=== PATIENT | male | born 1955 | race Caucasian/White ===

== ENCOUNTER 2020-08-28 14:18 | Emergency (ER) | payer BC, MEDICARE, OTHER ==
[~2020-08-28] VITALS: Ht 177.8 cm; Wt 67.7 kg
[2020-08-28 15:09] LABS: BASOPHILS # (AUTO) 0.1 X10'3 (0-0.2); BASOPHILS % (AUTO) 1.6 % (0-1); EOSINOPHILS # (AUTO) 0.1 X10'3 (0-0.9); EOSINOPHILS % (AUTO) 1.3 % (0-6); HEMATOCRIT 43.1 % (42.0-52.0); HEMOGLOBIN 14.6 g/dl (14.0-17.9); LYMPHOCYTES # (AUTO) 1.5 X10'3 (1.1-4.8); LYMPHOCYTES % (AUTO) 21.8 % (21-51); MEAN CORPUSCULAR HEMOGLOBIN 32.5 PG (27.0-31.0); MEAN CORPUSCULAR HGB CONC 33.9 g/dL (33.0-36.5); MEAN CORPUSCULAR VOLUME 95.9 FL (78-98); MEAN PLATELET VOLUME 8.3 FL (7.4-10.4); MONOCYTES # (AUTO) 0.8 X10'3 (0-0.9); MONOCYTES % (AUTO) 10.8 % (2-12); NEUTROPHILS # (AUTO) 4.5 X10'3 (1.8-7.7); NEUTROPHILS % (AUTO) 64.5 % (42-75); PLATELET COUNT 223 X10'3 (140-440); RED CELL DISTRIBUTION WIDTH 13.7 % (11.5-14.5)
[2020-08-28 15:20] LABS: ALANINE AMINOTRANSFERASE 25 U/L (12-78); ALBUMIN 3.8 G/DL (3.4-5.0); ALBUMIN/GLOBULIN RATIO 1.1 (1.1-1.5); ALKALINE PHOSPHATASE 72 IU/L (46-116); ANION GAP 11 (8-16); ASPARTATE AMINO TRANSFERASE 16 U/L (10-37); BILIRUBIN,TOTAL 0.8 MG/DL (0.1-1.0); BLOOD UREA NITROGEN 20 MG/DL (7-18); BUN/CREATININE RATIO 27.4 (5.4-32.0); CALCIUM 9.2 MG/DL (8.5-10.1); CHLORIDE 107 MMOL/L (99-107); CREATININE 0.73 MG/DL (0.60-1.10); GLUCOSE 107 MG/DL (70-104); POTASSIUM 3.6 MMOL/L (3.5-5.1); SODIUM 145 MMOL/L (135-145); TOTAL CARBON DIOXIDE 26.8 MMOL/L (24-32); TOTAL PROTEIN 7.3 G/DL (6.4-8.2); eGFR > 90 ML/MIN
[2020-08-28 15:28] LABS: ETHANOL < 0.010 GM/DL (0.0-0.010)
[2020-08-28] MEDS ORDERED: normal saline 1000ML IV soln IVB ONE (15:40)
[2020-08-28] MEDS ORDERED: morphine 4 MG/ML inj SYRINge IV ONE (15:40)
--- NOTE | 2020-08-28 16:36 | NUR ---
PT CHANGED INTO GREEN [facility]CRUBS, AGREEABLE TO STAYING AT THIS TIME
[2020-08-28] MEDS ORDERED: LORazepam 2 mg/ml vial IV ONE (17:25)
[2020-08-28 17:51] LABS: CLARITY,URINE SLIGHTLY CLOUDY (Clear); COLOR,URINE YELLOW (Yellow); GLUCOSE, URINE NEGATIVE (Neg); KETONES,URINE 15 mg/dl (Neg); LEUKOCYTE ESTERASE ,URINE NEGATIVE (Neg); NITRITES, URINE NEGATIVE (Neg); OCCULT BLOOD,URINE NEGATIVE (Neg); PROTEIN,URINE TRACE mg/dl (Neg); UA COLLECTION TYPE VOIDED; UROBILINOGEN,URINE >=8.0 E.U/dL (0.2-1.0)
[2020-08-28 17:57] LABS: MUCUS STRANDS MANY /LPF (Neg); SQUAMOUS EPITHELIAL CELL,UR FEW /LPF (FEW)
[2020-08-28 17:58] LABS: BACTERIA,URINE FEW /HPF (Neg); RBC,URINE 0-2 /HPF (0-2); WBC,URINE 0-4 /HPF (0-4)
[2020-08-28 18:04] LABS: URINE AMPHETAMINE SCREEN NEGATIVE (Neg); URINE BARBITUATE SCREEN NEGATIVE (Neg); URINE BENZODIAZEPINES SCREEN NEGATIVE (Neg); URINE CANNABINOID SCREEN POSITIVE (Neg); URINE COCAINE SCREEN NEGATIVE (Neg); URINE METHADONE SCREEN NEGATIVE (Neg); URINE OPIATE SCREEN POSITIVE (Neg); URINE PHENCYCLIDINE SCREEN NEGATIVE (Neg)
[2020-08-28] MEDS ORDERED: LORazepam 1 MG tablet PO ONE (18:15)
--- NOTE | 2020-08-28 18:30 | NUR ---
The patient moved to bed 25 in the ER overflow area. He was agitated and stating he was going to fight staff if he had to stay or "leave in a pine box" He did take an ativan and was able to sit on his bed and calm down. His speech was rapid and pressured. He stated that he has never been in a psychiatric hospital. He denies substance abuse. He denies that he is having thoughts to harm himself. He stated that his moods were up and down. He denies psychotic symptoms. He reports he has not been sleeping.
--- NOTE | 2020-08-28 21:04 | NUR ---
Call to his , Janina, and got a list of his home medications. [facility] is at the bedside and seeing the patient.
[2020-08-28] MEDS ORDERED: ATOR10TA PO (21:58)
[2020-08-28] MEDS ORDERED: FLO0.4C PO (21:58)
[2020-08-28] MEDS ORDERED: QUET-1 PO (21:58)
[2020-08-28] MEDS ORDERED: norco 10/325 PO (21:58)
[2020-08-28] MEDS ORDERED: PREG100C PO (21:58)
[2020-08-28] MEDS ORDERED: META800T87 PO (21:58)
[2020-08-28] MEDS ORDERED: CETI10TA15 PO (21:58)
[2020-08-28] MEDS ORDERED: MULT-17 PO (21:58)
[2020-08-28] MEDS ORDERED: RABE20TA31 PO (21:58)
--- NOTE | 2020-08-28 22:16 | NUR ---
[facility] at the bedside talking to the patient regarding the mental health hold.
[2020-08-28] MEDS: HYDROcodone/acetaminophen 10/325mg tab PO PRN (22:53)
[2020-08-28] MEDS: cyclobenzaprine 10mg tablet PO PRN (22:53)
[2020-08-28] MEDS: quetiapine 100mg tablet PO PRN (22:54)
--- NOTE | 2020-08-29 02:04 | NUR ---
The patient appears to be sleeping.
--- NOTE | 2020-08-29 03:35 | NUR ---
Pt sleeping on left side, RR 16, no signs of distress at this time.
--- NOTE | 2020-08-29 04:52 | NUR ---
Pt resting in bed, appears to be asleep, RR 18, no signs of distress at this time. Will continue to reassess.
--- NOTE | 2020-08-29 07:00 | NUR ---
pt is sleeping no concerns at this time
[2020-08-29] MEDS ORDERED: pregabalin 25mg capsule PO SCH (08:00)
[2020-08-29] MEDS ORDERED: multivitamins, therapeutics tablet PO SCH (08:00)
[2020-08-29] MEDS ORDERED: tamsulosin 0.4mg capsule PO SCH (08:00)
[2020-08-29] MEDS ORDERED: pregabalin 75mg capsule PO SCH (08:00)
[2020-08-29] MEDS ORDERED: pantoprazole 40mg Tablet.DR PO SCH (08:00)
--- NOTE | 2020-08-29 08:00 | NUR ---
pt is sleeping no concerns at this time
--- NOTE | 2020-08-29 09:00 | NUR ---
pt is sleeping
--- NOTE | 2020-08-29 10:00 | NUR ---
pt is sleeping no concerns at this time
--- NOTE | 2020-08-29 11:00 | NUR ---
pt is sleeping no concerns at this time
--- NOTE | 2020-08-29 12:00 | NUR ---
pt is sleeping no concerns at this time
[2020-08-29] MEDS: HYDROcodone/acetaminophen 10/325mg tab PO PRN ×2 (12:47→20:21)
--- NOTE | 2020-08-29 13:00 | NUR ---
is visiting the patient
--- NOTE | 2020-08-29 14:00 | NUR ---
pt is sleeping no concerns at this time
--- NOTE | 2020-08-29 15:00 | NUR ---
pt is talking with a patient. they are playing cards together
--- NOTE | 2020-08-29 16:00 | NUR ---
pt is talking with a patient.
--- NOTE | 2020-08-29 20:03 | NUR ---
Pt was sitting in bed talking w/roommate at change of shift. Shortly after pts arrive and sat and visited at bedside. Pt is concerned about being released in time for his son's on Saturday. Received call from [facility], pt has been accepted and they will be here at 2044 to bring him upstairs.
[2020-08-29] MEDS: quetiapine 100mg tablet PO PRN (20:21)
[2020-08-29] MEDS: cyclobenzaprine 10mg tablet PO PRN (20:22)
[2020-08-29] MEDS ORDERED: cetirizine 10mg tablet PO SCH (21:00)
[2020-08-29] MEDS ORDERED: atorvastatin 10mg tablet PO SCH (21:00)
[2020-08-29 21:07] VITALS: BP 138/83
[2020-08-31] MEDS ORDERED: CYCL-1 PO (13:55)
[2020-08-31] MEDS ORDERED: QUET300T19 PO (13:55)
[2020-08-31] MEDS ORDERED: RABE20TA31 PO (13:55)
[2020-08-31] MEDS ORDERED: QUET-1 PO (13:55)
[2020-08-31] MEDS ORDERED: CETI10TA15 PO (13:55)
[2020-08-31] MEDS ORDERED: PREG100C PO (13:55)
== END 2020-08-29 21:15 ==
LOC: ER 14:19
DX: F43.22 Adjustment disorder with anxiety (principal); Z20.822 Contact with and (suspected) exposure to COVID-19; G89.29 Other chronic pain; Z72.89 Other problems related to lifestyle; Z98.890 Other specified postprocedural states; Z88.5 Allergy status to narcotic agent; Z79.899 Other long term (current) drug therapy
CPT/HCPCS: 36415; 70450; 80053; 80305; 80320; 81001; 82140; 82948; 84443; 85025; 86592; 87426; 96361; 96374; 99285; J2270; J7030; 96360